=== PATIENT | male | born 1985 | race Caucasian/White ===

== ENCOUNTER 2018-10-20 04:45 | Emergency (ER) | payer SELFPAY ==
[~2018-10-20] VITALS: Ht 162.6 cm; Wt 91.9 kg
[2018-10-20 04:48] VITALS: Ht 162.6 cm; Wt 91.9 kg
[2018-10-20] MEDS ORDERED: HYDROmorphONE 1 MG/ML SYG IV STA (05:58)
[2018-10-20] MEDS ORDERED: ONDANSETRON 4 MG INJ IV STA (05:58)
[2018-10-20] MEDS ORDERED: SOD CHLORIDE 0.9% 1,000 ML IV STA (05:58)
[2018-10-20] MEDS ORDERED: FAMOTIDINE 20 MG INJ IV STA (06:25)
[2018-10-20] MEDS ORDERED: BELLADONNA/PHENOBARBITAL TAB PO STA (06:25)
[2018-10-20] MEDS ORDERED: LIDOCAINE/MYLANTA 40 ML BTL PO STA (06:25)
[2018-10-20] MEDS ORDERED: OMEP20CA16 PO (07:31)
--- NOTE | 2018-10-20 07:40 | ERD ---
ER Documentation Chief Complaint Chief Complaint pt sleeping woke up with epig pain; hx GB stones; no N/V HPI This is a 33-year-old male who presents to the emergency room complaining of epigastric abdominal pain. The patient has a known history of gallstones. He states that he ate a large meal around 10 PM last night. He woke up with epigastric abdominal pain with burning sensation slightly migratory to his back. He denied any chest pressure or shortness of breath, no pleuritic pain. No significant migratory pain to the right upper quadrant or scapula. Pain is noted to be moderate to severe at this time. No nausea vomiting or diarrhea or constipation. ROS All systems reviewed and are negative except as per history of present illness. Medications Home Meds Active Scripts Omeprazole* (Omeprazole*) 20 Mg Capsule.dr, 20 MG PO DAILY, #30 Prov:NITHIN AHN MD 10/20/18 Allergies Allergies: Coded Allergies: No Known Allergy (Unverified , 10/20/18) PMhx/Soc Medical and Surgical Hx: pt denies Surgical Hx History of Surgery: No Anesthesia Reaction: No Hx Neurological Disorder: No Hx Respiratory Disorders: No Hx Cardiac Disorders: No Hx Psychiatric Problems: No Hx Miscellaneous Medical Probl: Yes (GALLSTONES) Hx Alcohol Use: Yes (OCASSIONALLY) Hx Substance Use: No Hx Tobacco Use: Yes Smoking Status: Current every day smoker FmHx Family History: No diabetes Physical Exam Vitals Vital Signs Date Temp Pulse Resp B/P (MAP) Pulse Ox O2 O2 Flow FiO2 Time Delivery Rate 10/20/18 68 24 121/104 100 Room Air 06:00 (110) 10/20/18 98.0 91 23 170/108 98 04:48 (128) Physical Exam General: Well developed, well nourished, no acute distress Head: Normocephalic, atraumatic. Eyes: Pupils equally reactive, EOM intact ENT: Moist mucous membranes Neck: Supple, no lymphadenopathy Respiratory: Lungs clear bilaterally, no distress Cardiovascular: RRR, no murmurs, rubs, or gallops Abdominal: Soft, mild tenderness to palpation in the epigastrium and right upper quadrant, greater in the epigastrium. No true Saavedra sign. No tenderness to McBurney's point, no pulsatile mass. No peritonitis. : Deferred MSK: No edema, no unilateral swelling, 5/5 strength Neurologic: Alert and oriented, moving all extremities, normal speech, no focal weakness, no cerebellar signs Skin: No rash Psych: Normal mood Result Diagram: 10/20/18 0557 10/20/18 0557 Results 24 hrs Laboratory Tests Test 10/20/18 05:57 White Blood Count 6.8 10^3/ul Red Blood Count 5.00 10^6/ul Hemoglobin 15.4 g/dl Hematocrit 45.1 % Mean Corpuscular Volume 90.2 fl Mean Corpuscular Hemoglobin 30.8 pg Mean Corpuscular Hemoglobin Concent 34.1 g/dl Red Cell Distribution Width 12.5 % Platelet Count 236 10^3/UL Mean Platelet Volume 9.4 fl Immature Granulocytes % 0.000 % Neutrophils % 54.5 % Lymphocytes % 35.6 % Monocytes % 7.9 % Eosinophils % 1.6 % Basophils % 0.4 % Nucleated Red Blood Cells % 0.0 /100WBC Immature Granulocytes # 0.000 10^3/ul Neutrophils # 3.7 10^3/ul Lymphocytes # 2.4 10^3/ul Monocytes # 0.5 10^3/ul Eosinophils # 0.1 10^3/ul Basophils # 0.0 10^3/ul Nucleated Red Blood Cells # 0.0 10^3/ul Urine Color YELLOW Urine Clarity CLEAR Urine pH 5.0 Urine Specific Joseph 1.027 Urine Ketones NEGATIVE mg/dL Urine Nitrite NEGATIVE mg/dL Urine Bilirubin NEGATIVE mg/dL Urine Urobilinogen 1+ mg/dL Urine Leukocyte Esterase NEGATIVE Brock/ul Urine Hemoglobin NEGATIVE mg/dL Urine Glucose NEGATIVE mg/dL Urine Total Protein NEGATIVE mg/dl Sodium Level 139 mmol/L Potassium Level 4.0 mmol/L Chloride Level 105 mmol/L Carbon Dioxide Level 24 mmol/L Anion Gap 10 Blood Urea Nitrogen 12 mg/dl Creatinine 0.96 mg/dl Est Glomerular Filtrat Rate mL/min > 60 mL/min Glucose Level 107 mg/dl Calcium Level 9.4 mg/dl Total Bilirubin 0.4 mg/dl Direct Bilirubin 0.00 mg/dl Indirect Bilirubin 0.4 mg/dl Aspartate Amino Transf (AST/SGOT) 35 IU/L Alanine Aminotransferase (ALT/SGPT) 91 IU/L Alkaline Phosphatase 57 IU/L Total Protein 7.6 g/dl Albumin 4.8 g/dl Globulin 2.80 g/dl Albumin/Globulin Ratio 1.71 Lipase 169 U/L Current Medications Medications Dose Sig/Haydee Start Time Status Last (Trade) Ordered Route PRN Stop Time Admin Dose Reason Admin Sodium 1,000 ml @ Q1H STAT 10/20/18 DC 10/20/18 Chloride 1,000 mls/hr IV 05:58 10/20/18 06:03 06:57 1 mg ONCE STAT 10/20/18 DC 10/20/18 Hydromorphone IV 05:58 10/20/18 06:03 HCl 06:00 (Dilaudid) Ondansetron 4 mg ONCE STAT 10/20/18 DC 10/20/18 HCl (Zofran IV 05:58 10/20/18 06:03 Inj) 06:00 Famotidine 20 mg ONCE STAT 10/20/18 DC 10/20/18 (Pepcid Iv) IV 06:25 10/20/18 06:37 06:26 40 ml ONCE STAT 10/20/18 DC 10/20/18 Miscellaneous PO 06:25 10/20/18 06:37 Medication 06:26 (Gi Cocktail (2)) Belladonna/ 2 tab ONCE STAT 10/20/18 DC 10/20/18 Phenobarbital PO 06:25 10/20/18 06:37 () 06:26 Procedures/MDM EKG, MONITORS, & DIAGNOSTIC IMAGING: Gallbladder ultrasound IMPRESSION: 1. 1.4 cm gallstone at the level the gallbladder neck. 2. No gallbladder wall thickening or pericholecystic fluid. Negative biliary du ctal dilation. 3. Hepatomegaly with hepatic fatty infiltration but no focal hepatic lesions. 4. Unremarkable right kidney and those portion the pancreas that could be visualized. RPTAT:AAJJ LAB INTERPRETATION: I reviewed the laboratory testing and it shows no evidence of acute process MEDICAL DECISION MAKING: The patient presents with postprandial, late evening meal burning epigastric abdominal pain. This is very consistent with dyspepsia versus peptic ulcer disease versus reflux. Patient does have a known history of gallstones, patient has no significant pain to the right upper quadrant and no Saavedra sign. I will lower pretest probability for acute cholecystitis though ultrasound of the gallbladder and LFT testing and lipase would be very reasonable. Patient has no chest pain and no exertional symptoms to suggest cardiac etiology therefore I do not believe EKG or troponin is necessary either. No pulmonary process to suggest pneumonia or pulmonary embolism. I believe the patient will benefit from symptom control medication including GI cocktail. Patient received narcotic pain medication prior to my arrival from the overnight provider. ER COURSE: * Patient was given pain medication and GI cocktail and has a dramatic improvement of his symptoms. He is resting comfortably currently. His laboratory testing and diagnostic imaging are unrevealing other than cholelithiasis. * Clinically the patient does not have signs or symptoms concerning for acute cholecystitis. His laboratory testing shows no evidence of hepatobiliary obstruction. * The patient can be safely discharged with outpatient GI and general surgery follow-up. Return precautions were discussed and understood. CONSULTATION: None DISPOSITION PLAN: The patient does not have an identifiable emergent medical condition that warrants inpatient hospitalization at this time. The patient is deemed safe for discharge with outpatient follow-up. We discussed follow up with the patient's primary care doctor within 24 to 48 hours as needed. We also discussed return to the emergency room for worsening symptoms or worsening condition. Outpatient referral: General surgery and gastroenterology Discharge Medications: Prilosec Departure Diagnosis: Primary Impression: Dyspepsia Additional Impressions: Epigastric abdominal pain Cholelithiasis Cholelithiasis location: gallbladder Cholecystitis presence: without cholecystitis Biliary obstruction: without biliary obstruction Qualified Codes: K80.20 - Calculus of gallbladder without cholecystitis without obstruction Biliary colic Condition: Good Patient Instructions: Gallstones, Gerd (Adult), Epigastric Pain (Uncertain Cause) Referrals: RACHELLE MCKINNEY MD, SAMUEL MD [facility] YOU HAVE RECEIVED A MEDICAL SCREENING EXAM AND THE RESULTS INDICATE THAT YOU DO NOT HAVE A CONDITION THAT REQUIRES URGENT TREATMENT IN THE EMERGENCY DEPARTMENT. FURTHER EVALUATION AND TREATMENT OF YOUR CONDITION CAN WAIT UNTIL YOU ARE SEEN IN YOUR DOCTORS OFFICE WITHIN THE NEXT 1-2 DAYS. IT IS YOUR RESPONSIBILITY TO MAKE AN APPOINTMENT FOR FOLOW-UP CARE. IF YOU HAVE A PRIMARY DOCTOR --you should call your primary doctor and schedule an appointment IF YOU DO NOT HAVE A PRIMARY DOCTOR YOU CAN CALL OUR PHYSICIAN REFERRAL HOTLINE AT IF YOU CAN NOT AFFORD TO SEE A PHYSICIAN YOU CAN CHOSE FROM THE FOLLOWING [facility] [address] [facility]. [facility] [address] [facility]. [facility] [address] [facility]. [facility] [address] [facility]. [facility] [address] [facility]. [facility]. [address] [facility]. [facility] YOU HAVE RECEIVED A MEDICAL SCREENING EXAM AND THE RESULTS INDICATE THAT YOU DO NOT HAVE A CONDITION THAT REQUIRES URGENT TREATMENT IN THE EMERGENCY DEPARTMENT. FURTHER EVALUATION AND TREATMENT OF YOUR CONDITION CAN WAIT UNTIL YOU ARE SEEN IN YOUR DOCTORS OFFICE WITHIN THE NEXT 1-2 DAYS. IT IS YOUR RESPONSIBILITY TO MAKE AN APPOINTMENT FOR FOLOW-UP CARE. IF YOU HAVE A PRIMARY DOCTOR --you should call your primary doctor and schedule and appointment IF YOU DO NOT HAVE A PRIMARY DOCTOR YOU CAN CALL OUR PHYSICIAN REFERRAL HOTLINE AT . IF YOU CAN NOT AFFORD TO SEE A PHYSICIAN YOU CAN CHOSE FROM THE FOLLOWING [facility] INSTITUTIONS: [facility] [address] [place] [address] [facility] [address] [place] [address] [facility] [address] [place] [address] Additional Instructions: Please return for uncontrolled pain, fever or severe right upper quadrant abdominal pain. You may need to follow-up with a cost accounting manager and general surgeon for further investigation. NITHIN AHN MD Oct 20, 2018 07:40
[2018-10-20 07:51] VITALS: BP 145/88; PULSE 72; RESP 18
== END 2018-10-20 07:53 | disposition home or self-care (01) ==
LOC: E/R 04:45
DX: K80.70 Calculus of gallbladder and bile duct without cholecystitis without obstruction (principal); F17.210 Nicotine dependence, cigarettes, uncomplicated
CPT/HCPCS: 36415; 76705; 80053; 81003; 83690; 85025; 96361; 96374; 96375; 99285; J1170; J2405; J7030